=== PATIENT | female | born 1960 | race Caucasian/White ===

== ENCOUNTER 2019-07-10 21:56 | Emergency (ER) | payer MEDICAID ==
[~2019-07-10] VITALS: Ht 147.3 cm; Wt 67.0 kg
[2019-07-10] MEDS ORDERED: IBUPROFEN 400MG TABLET PO ONE (23:00)
[2019-07-11 01:40] VITALS: BP 143/90
== END 2019-07-11 01:49 | disposition home or self-care (01) ==
LOC: ER 21:56
DX: M25.571 Pain in right ankle and joints of right foot (principal); G40.909 Epilepsy, unspecified, not intractable, without status epilepticus; I10 Essential (primary) hypertension; J45.909 Unspecified asthma, uncomplicated; Z59.0 Homelessness; Z87.828 Personal history of other (healed) physical injury and trauma
CPT/HCPCS: 99283